=== PATIENT | female | born 1985 | race Caucasian/White ===

== ENCOUNTER 2017-09-03 02:06 | Emergency (ER) | payer OTHER ==
[~2017-09-03] VITALS: Ht 154.9 cm; Wt 59.0 kg
--- NOTE | 2017-09-03 02:30 | NUR ---
Dr Muller at bedside for assessment and eval
[2017-09-03 03:06] LABS: BASOPHILS % (AUTO) 0.3 % (0.0-2.0); EOSINOPHILS # (AUTO) 0.1 K/uL (0.0-0.7); EOSINOPHILS % (AUTO) 0.9 % (0.0-7.0); HEMATOCRIT 40.6 % (31.2-41.9); HEMOGLOBIN 13.7 g/dL (10.9-14.3); LYMPHOCYTES # (AUTO) 2.9 K/uL (20.0-40.0); MEAN CORPUSCULAR HEMOGLOBIN 30.7 uug (24.7-32.8); MEAN CORPUSCULAR HGB CONC 34 g/dL (32.3-35.6); MEAN CORPUSCULAR VOLUME 90.7 fL (75.5-95.3); MONOCYTES # (AUTO) 0.7 K/uL (2.0-10.0); MONOCYTES % (AUTO) 12.8 % (0.0-11.0); NEUTROPHILS # (AUTO) 1.9 K/uL (1.8-8.9); PLATELET COUNT (AUTO) 199 K/uL (179-408); RED BLOOD CELL COUNT(AUTO) 4.47 MIL/uL (3.63-4.92); WHITE BLOOD COUNT (AUTO) 5.5 K/uL (3.8-11.8)
[2017-09-03 03:09] LABS: BILIRUBIN,DIRECT 0.1 mg/dL (0.0-0.2); BILIRUBIN,TOTAL 0.2 mg/dL (0.2-1.0); CREATININE 0.9 mg/dL (0.6-1.3); POTASSIUM 3.5 mmol/L (3.5-5.1)
--- NOTE | 2017-09-03 03:30 | NUR ---
Patient discharged to home in stable conditon. Written and verbal after care instructions given. Patient verbalizes understanding of instructions.
[2017-09-03 03:37] VITALS: BP 125/70
== END 2017-09-03 03:35 | disposition home or self-care (01) ==
LOC: ER 02:11
DX: R55 Syncope and collapse (principal); R32 Unspecified urinary incontinence
CPT/HCPCS: 36415; 70030-TC; 83605; 84703; 85025; 85730; 87040; 93005; A4663